=== PATIENT | female | born 1995 | race African-American/Black ===

== ENCOUNTER 2020-09-13 23:11 | Emergency (ER) | payer OTHER ==
[2020-09-13] MEDS ORDERED: Ketorolac Tromethamine 30 MG/ML VIAL ONE (23:46)
== END 2020-09-14 00:06 | disposition home or self-care (01) ==
LOC: CSHERS 23:11
DX: K02.9 Dental caries, unspecified (principal)
CPT/HCPCS: 96372; 99283; J1885

== ENCOUNTER 2023-03-15 10:13 | Outpatient (CLI) | payer OTHER | END 2023-03-15 10:14 | disposition home or self-care (01) | LOC: CSHULT 10:13 | PROVIDERS: ATTEND Family Medicine | DX: O26.891 Other specified pregnancy related conditions, first trimester (principal); R10.2 Pelvic and perineal pain; N83.201 Unspecified ovarian cyst, right side; Z79.811 Long term (current) use of aromatase inhibitors | CPT/HCPCS: 76801 ==

== ENCOUNTER 2023-05-18 19:04 | Emergency (ER) | payer OTHER | END 2023-05-18 20:22 | disposition home or self-care (01) | LOC: CSHERS 19:04 | DX: K12.2 Cellulitis and abscess of mouth (principal); K08.89 Other specified disorders of teeth and supporting structures | CPT/HCPCS: 99282 ==